=== PATIENT | male | born 1995 | race Two or more races ===

== ENCOUNTER 2018-04-25 01:27 | Inpatient (IN) | payer MEDICAID ==
--- NOTE | 2018-04-25 01:36 | EDPHY ---
H & P Time Seen by Provider: 04/25/18 01:32 HPI/ROS: CHIEF COMPLAINT: Bilateral ankle pain HISTORY OF PRESENT ILLNESS: Patient is a 22-year-old male brought here by EMS to complaint of bilateral ankle pain after falling this afternoon. The patient reports that he was in [place] climbing and was approximately 13 ft off the ground not using any ropes when a rock broke that he was holding onto any fell backwards directly onto both feet. He was able to take a couple steps after landing but has not been able to ambulate since. He was seen by [facility] and transported from site and then transported here by EMS. No medication was administered by EMS. He denies any drug or alcohol use. He denies any chronic medical conditions in takes no prescription medication. Denies numbness in his feet but does report loss of range of motion of bilateral ankles. Denies any low back pain, head injury, shortness of breath, abdominal pain, neck pain. REVIEW OF SYSTEMS: Constitutional: No fever, no chills. Eyes: No discharge. ENT: No sore throat. Cardiovascular: No chest pain, no palpitations. Respiratory: No cough, no shortness of breath. Gastrointestinal: No abdominal pain, no vomiting. Genitourinary: No hematuria. Musculoskeletal: No back pain. Skin: No rashes. Neurological: No headache. (Louis Castillo) Physical Exam: General Appearance: Alert and no distress. Eyes: Pupils equal and round no injection. Respiratory: Chest is nontender, lungs are clear to auscultation. Cardiac: regular rate and rhythm. Gastrointestinal: Abdomen is soft and nontender, no masses, bowel sounds normal. Musculoskeletal: Neck is supple and nontender, bilateral ecchymotic ankles without gross deformity. No tenderness to bilateral knees or mid tibia. Pedal pulses strong in bilateral feet. Neurovascular intact distal to the ankle bilaterally. Extremities have full range of motion and are nontender. Skin: No rashes or lesions. (Louis Castillo) Constitutional: Initial Vital Signs Temperature (C) 36 C 04/25/18 01:30 Heart Rate 93 04/25/18 01:30 Respiratory Rate 16 04/25/18 01:30 Blood Pressure 129/90 H 04/25/18 01:30 O2 Sat (%) 95 04/25/18 01:30 O2 Delivery Mode Room Air Allergies/Adverse Reactions: No Known Allergies Allergy (Unverified 04/25/18 01:34) Home Medications: Medication Instructions Recorded NK [No Known Home Meds] 04/25/18 Medical Decision Making ED Course/Re-evaluation: 22-year-old male here status post fall from 13 ft resulting in bilateral medial malleolus fractures. Patient is unable to walk and will be admitted for orthopedic evaluation. I discussed this with the trauma team who agrees to admit the patient is requesting orthopedic consult. Patient signed out to Dr. Pleitez at the end of my shift pending discussion with Orthopedics and splint placement and admission. (Louis Castillo) 0215: (Dominic Pleitez) Differential Diagnosis: Hip fracture, pelvic fracture, lumbar spine fracture, closed-head injury, neurovascular injury, compartment syndrome (Louis Castillo) - Data Points Medications Given: Dextrose/Sodium Chloride (D5w Ns) 1,000 mls @ 125 mls/hr IV CONT CELESTE Stop: 10/22/18 02:59 Last Admin: 04/25/18 08:22 Dose: 1,000 mls Morphine Sulfate (Morphine) 2 - 4 mg IVP Q1HR PRN PRN Reason: Pain, Severe Unable to Take PO Stop: 05/05/18 02:54 Last Admin: 04/25/18 08:09 Dose: 2 mg Oxycodone HCl (Oxycodone Ir) 5 - 10 mg PO Q4HRS PRN PRN Reason: Pain, Severe Able to Take PO Stop: 05/05/18 14:02 Last Admin: 04/25/18 22:13 Dose: 5 mg Discontinued Medications Bacitracin (Bacitracin Syringe) Confirm Administered Dose 50,000 units IRR .STK- MED ONE Stop: 04/25/18 09:16 Last Admin: 04/25/18 11:33 Dose: 50,000 units Bupivacaine HCl (Sensorcaine 0.25% Sdv) Confirm Administered Dose 30 ml .ROUTE .STK-MED ONE Stop: 04/25/18 09:15 Last Admin: 04/25/18 11:32 Dose: 30 ml Sodium Chloride (Ns) 1,000 mls @ 0 mls/hr IV EDNOW ONE; Wide Open PRN Reason: Protocol Stop: 04/25/18 01:49 Last Admin: 04/25/18 01:58 Dose: 1,000 mls Cefazolin Sodium/Dextrose (Ancef 2 Gm) 100 mls @ 200 mls/hr IV ONCALL ONE PRN Reason: Protocol Stop: 04/25/18 10:57 Last Admin: 04/25/18 10:53 Dose: 100 mls Cefazolin Sodium/Dextrose (Ancef 2 Gm) 100 mls @ 200 mls/hr IV Q8HRS CELESTE PRN Reason: Protocol Stop: 04/25/18 22:29 Last Admin: 04/25/18 21:58 Dose: 100 mls Ketorolac Tromethamine (Toradol) 15 mg IVP POSTOP ONE Stop: 04/25/18 12:01 Last Admin: 04/25/18 13:58 Dose: Not Given Midazolam HCl (Versed) 2 mg IVP ONCALL ONE Stop: 04/25/18 10:54 Last Admin: 04/25/18 10:53 Dose: 2 mg Morphine Sulfate (Morphine) 4 mg IVP EDNOW ONE Stop: 04/25/18 02:29 Last Admin: 04/25/18 02:29 Dose: 4 mg Ondansetron HCl (Zofran) 4 mg IVP EDNOW ONE Stop: 04/25/18 02:29 Last Admin: 04/25/18 02:29 Dose: 4 mg Polymyxin B Sulfate (Polymyxin B Syringe) Confirm Administered Dose 500,000 unit IRR .STK-MED ONE Stop: 04/25/18 09:16 Last Admin: 04/25/18 11:33 Dose: 500,000 unit Departure - Departure Disposition: [facility] Inpatient Acute Clinical Impression: Bilateral ankle fractures Qualifiers: Encounter type: initial encounter Fracture type: closed Qualified Code(s): S82.891A - Other fracture of right lower leg, initial encounter for closed fracture; S82.892A - Other fracture of left lower leg, initial encounter for closed fracture; S82.892A - Other fracture of left lower leg, initial encounter for closed fracture Condition: Fair
[2018-04-25] MEDS ORDERED: NS 1,000 ML IV ONE (01:48)
[2018-04-25] MEDS ORDERED: ONDANSETRON 4 MG/2 ML VIAL ONE ×2 (02:27→10:50)
[2018-04-25] MEDS ORDERED: ONDANSETRON 4 MG/2 ML VIAL IVP ONE (02:28)
[2018-04-25] MEDS ORDERED: ONDANSETRON 4 MG/2 ML VIAL IVP PRN ×2 (02:55→11:04)
[2018-04-25] MEDS ORDERED: D5W NS 1,000 ML IV SCH (03:00)
--- NOTE | 2018-04-25 03:06 | PDGENHP ---
History and Physical - Chief Complaint s/p fall while climbing - History of Present Illness Saman is a 22 y/o male who was rock climbing when he fall about 10 feet and landed on his feet. He experienced immediate bilateral ankle pain and sat down. His friend went to get help and Saman was able to drag himself using his arms to the trail. He was then transported out by stretcher the rest of the way. The fall occured around 1930. [facility] ED as a L[facility] where he was seen and evaluated on arrival. Plain films revealed bilateral medial malleolar fractures and Trauma Surgery consultation was requested. He denies head injury, LOC, back/chest/abd pain. His last meal was 04/24 at 1300. 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 He is physically active and enjoys weight lifting and playing soccer Review of Systems Review of Systems: Constitutional: Reports: no symptoms EENMT: Reports: no symptoms Cardiac: Reports: no symptoms Respiratory: Reports: no symptoms Gastrointestinal: Reports: no symptoms Genitourinary: Reports: no symptoms Muscolosketal: Reports: joint pain (bilateral ankle) Neurological: Reports: no symptoms Physical Exam Physical Exam: Temp Pulse Resp BP Pulse Ox 36 C 100 16 158/97 H 94 04/25/18 01:30 04/25/18 02:33 04/25/18 02:33 04/25/18 02:33 04/25/18 02:33 Constitutional: other (WDWN young man in mild distress ) Eyes: PERRL, EOMI, other (TMs clear) Ears, Nose, Mouth, Throat: dry mucous membranes Cardiovascular: regular rate and rhythym Peripheral Pulses: 4+: dorsalis-pedis (R) (unable to palpate PT due to swelling) , dorsalis-pedis (L) Respiratory: no respiratory distress, no rales or rhonchi, clear to auscultation Gastrointestinal: normoactive bowel sounds, soft, non-tender abdomen Genitourinary: no bladder fullness Skin: warm Musculoskeletal: full muscle strength, other (bilateral ankle swelling with medial bruising R>L, intact sensation and motor function/no cervical, thoracic, lumbar spine tenderness) Neurologic: AAOx3, sensation intact bilaterally Psychiatric: interacting appropriately, not anxious, not encephalopathic Lab Data & Imaging Review 04/25/18 02:30 Visualized and Interpreted imaging results: Yes Interpretation: bilateral medial malleolar fractures/AP + Lateral lumbar spine neg Assessment & Plan Assessment: s/p fall from 10 ft height bilateral medial malleolar fractures Plan: Admit to observation Tertiary Survey in AM Ortho consult requested from Dr. José Manuel Nunn If no other injury identified, transfer to Ortho for management of isolated Orthopedic injuries
[2018-04-25] MEDS ORDERED: BUPIVACAINE 0.25% 30 ML SDV ONE (09:14)
[2018-04-25] MEDS ORDERED: POLYMYXIN B SULFATE 500,000 UNIT/10 ML SYR IRR ONE (09:15)
[2018-04-25] MEDS ORDERED: BACITRACIN 50,000 UNITS/10 ML SYR IRR ONE (09:15)
[2018-04-25] MEDS ORDERED: ceFAZolin 2 GM/DEXTROSE 100 ML IV ONE (10:28)
[2018-04-25] MEDS ORDERED: MIDAZOLAM 2 MG/2 ML VIAL ONE (10:47)
[2018-04-25] MEDS ORDERED: DEXAMETHASONE 4 MG/ML VIAL ONE ×2 (10:50)
[2018-04-25] MEDS ORDERED: PROPOFOL 200 MG/20 ML VIAL ONE (10:50)
[2018-04-25] MEDS ORDERED: fentaNYL 100 MCG/2 ML INJ ONE (10:50)
[2018-04-25] MEDS ORDERED: LIDOCAINE 2% JELLY 5 ML TUBE ONE (10:50)
[2018-04-25] MEDS ORDERED: MIDAZOLAM 2 MG/2 ML VIAL IVP ONE (10:53)
--- NOTE | 2018-04-25 10:56 | PDANEPAE ---
ANE Past Medical History - Pulmonary History Hx Oxygen in Use at Home: No Hx Sleep Apnea: No Sleep Apnea Screening Result - Last Documented: Negative - Endocrine History Hx Diabetes: No - Chronic Pain History Chronic Pain: Yes ANE Review of Systems Review of Systems: ANE Patient History - Allergies Allergies/Adverse Reactions: No Known Allergies Allergy (Unverified 04/25/18 01:34) - Home Medications Home Medications: NK [No Known Home Meds] 04/25/18 [Last Taken Unknown] - NPO status NPO Since - Liquids (Date): 04/25/18 NPO Since - Liquids (Time): 00:00 NPO Since - Solids (Date): 04/25/18 NPO Since - Solids (Time): 00:00 - Smoking Hx Smoking Status: Never smoked - Alcohol Use Alcohol Use: None - Family Anes Hx Family Anes Hx: neg - N/A ANE Labs/Vital Signs - Labs Result Diagrams: 04/25/18 02:30 - Vital Signs Blood Pressure: 106/66 Heart Rate: 74 Respiratory Rate: 16 O2 Sat (%): 96 Height: 170.18 cm Weight: 72.575 kg ANE Physical Exam - Airway Neck exam: FROM Mouth exam: normal dental/mouth exam - Pulmonary Pulmonary: no respiratory distress, no rales or rhonchi, clear to auscultation - Cardiovascular Cardiovascular: regular rate and rhythym, no murmur, rub, or gallop - ASA Status ASA Status: I ANE Anesthesia Plan Anesthesia Plan: GA w LMA
[2018-04-25] MEDS ORDERED: HYDROCODONE/APAP 5/325 TAB PO PRN (11:04)
[2018-04-25] MEDS ORDERED: fentaNYL 100 MCG/2 ML INJ IVP PRN (11:04)
[2018-04-25] MEDS ORDERED: MEPERIDINE 25 MG/0.5 ML AMP IVP PRN (11:04)
[2018-04-25] MEDS ORDERED: NALOXONE HCL 0.4 MG/ML INJ IVP PRN (11:04)
[2018-04-25] MEDS ORDERED: PROMETHAZINE HCL 25 MG/ML INJ IVP PRN (11:04)
[2018-04-25] MEDS ORDERED: LR 500 ML IV PRN (11:04)
[2018-04-25] MEDS ORDERED: METOCLOPRAMIDE 10 MG/2 ML VIAL IVP PRN (11:04)
[2018-04-25] MEDS ORDERED: oxyCODONE IR 5 MG TAB PO PRN (11:04)
[2018-04-25] MEDS ORDERED: ACETAMINOPHEN 500 MG TAB PO PRN (11:04)
[2018-04-25] MEDS ORDERED: LIDOCAINE 2% 5 ML SDV ONE (11:14)
[2018-04-25] MEDS ORDERED: ESMOLOL HCL 100 MG/10 ML VIAL IV ONE (11:14)
--- NOTE | 2018-04-25 11:58 | POSTOPPROG ---
Post Op Note Date of Operation: 04/25/18 Surgeon: José Manuel Nunn Ton Cylinder Inspector: None Anesthesiologist: Deb Anesthesia: LMA Pre-op Diagnosis: Right ankle medial maleolus fracture Post-op Diagnosis: Same\ Indication: Broken ankle Procedure: ORIF medial maleolus Findings: Synthes 4.0 Tip threaded cancellous screws x 2 Inf/Abcess present in the surg proc area at time of surgery?: No EBL: Minimal Complications: None
--- NOTE | 2018-04-25 11:59 | POSTANESTH ---
Post Anesthetic Evaluation Cardiovascular Status: Normal, Stable, Similar to Pre-Op Cond Respiratory Status: Normal, Stable, Similar to Pre-op Cond. Level of Consciousness/Mental Status: Can Participate in Eval, Moderately Sleepy Pain Control: Adequate, Prn Tx Ordered Nausea/Vomiting Control: Adequate, Prn Tx Ordered Complications Possibly Related to Anesthesia: None Noted
[2018-04-25] MEDS ORDERED: KETOROLAC 15 MG/1 ML SDV IVP ONE (12:00)
[2018-04-25] MEDS ORDERED: TEMAZEPAM 15 MG CAP PO PRN (12:00)
--- NOTE | 2018-04-25 12:10 | SOAPPROG ---
SOAP Progress Note Assessment/Plan: Assessment/Plan: R ankle medial malleolus fracture, displaced s/p ORIF of medial malleolus performed by Dr. Nunn, POD#0 -Cont PT/OT, pt will be NWB of his RLE -Pt is to remain in his splint at all times -Cont current pain regimen, encourage PO as tolerated -Encourage ice/elevation while in bed -Cont postop abx as ordered -SCDs and TEDs contraindicated d/t fracture/immobilizer status -Will begin ASA 325 mg for VTE chemoprophylaxis -Pt will likely d/c to home when cleared, likely tomorrow L ankle medial malleolus fracture -Cont PT/OT, pt will be WBAT on LLE -Must remain in boot -Cont current pain regimen, encourage PO as tolerated -Encourage ice/elevation while in bed -SCDs and TEDs contraindicated d/t fracture/immobilizer status -Will begin ASA 325 mg for VTE chemoprophylaxis -Pt will likely d/c to home when cleared, likely tomorrow 04/25/18 12:07 Subjective: Pt transported to PACU in stable condition Objective: Vital Signs Temp Pulse Resp BP Pulse Ox 37.0 C 74 16 106/66 96 04/25/18 10:05 04/25/18 10:57 04/25/18 10:57 04/25/18 10:57 04/25/18 10:57 Laboratory Results 04/25/18 02:30 ICD10 Worksheet Patient Problems: Problems Problem Status Onset Closed displaced fracture of medial malleolus of right tibia Acute - ICD10 Problem Qualifiers (1) Closed displaced fracture of medial malleolus of right tibia Qualifiers: Encounter type: initial encounter Qualified Code(s): S82.51XA - Displaced fracture of medial malleolus of right tibia, initial encounter for closed fracture
--- NOTE | 2018-04-25 12:33 | GOP ---
[f rep st] OPERATIVE REPORT DATE OF OPERATION: 04/25/2018 SURGEON: José Manuel Nunn MD PREOPERATIVE DIAGNOSIS: Bilateral medial malleolar ankle fractures. POSTOPERATIVE DIAGNOSIS: Bilateral medial malleolar ankle fractures. PROCEDURE PERFORMED: 1. Open treatment of right medial malleolus fracture. 2. Closed treatment of left medial malleolus fracture. FINDINGS: Synthes 4.0 mm tip threaded cancellous screws x2 were utilized for internal fixation of hi s medial malleolar fracture. INDICATIONS: The patient is a 22-year-old who was rock climbing late last night when he apparently f ell approximately 10 feet, injuring his bilateral ankles. He was evacuated and brought into the [facility] Emergency Department where his ankle fractures were identified. Due to the displaced paolo ure of his right medial malleolar fracture, he is brought to the operating room for definitive surgic al management. Additionally, he undergoes examination under anesthesia of the left ankle and subsequ ent boot immobilization. DESCRIPTION OF PROCEDURE: After routinely checking the patient's identification, consent, and the hoover ccessful induction of LMA general anesthetic, the patient's right lower extremity was prepped and corinne ped in usual standard fashion. A surgical time-out was completed. A curvilinear incision on the medial aspect of the ankle was carried sharply through skin and then bl untly through the subcutaneous layer. I dissected down through the subcutaneous layer and there was extensive disruption of the soft tissues. His medial malleolus was rotated 180 degrees out of plane. I opened the fracture site and evacuated fracture hematoma. I then sharply dissected subperiosteal fragments such that I had a good exposure of the actual fracture plane itself. I extracted soft tis kassie from the fracture that was mostly periosteum that had draped over the fracture. I then rotated t he fragment appropriately and repositioned it. I held it in position with a pointed bone tenaculum. I then pre drilled and then placed the above-noted screws, which achieved excellent purchase in this patient's bone and tightly closed the fracture. The FluoroScan unit was used to verify the fracture was reduced and the hardware was appropriately positioned. The wound was thoroughly irrigated. I t hen closed the periosteum with 3-0 Vicryl suture over the fracture site. I brought the shredded post erior retinaculum from the F[facility] and posterior tib tendon with tendons back together and sutured the re tinaculum to the periosteum. The ankle was flexed and extended. There was no evidence of subluxatio n of the medial tendons. Satisfied with this, I closed the subcutaneous layer with a combination of 2-0 and 3-0 Vicryl, and th e skin with subcuticular 4-0 Monocryl, followed by Steri-Strips. 0.25% Marcaine, plus epinephrine wa s infiltrated around the wound for postoperative comfort and assistance in hemostasis. A sterile bul ky dressing was applied, followed by a posterior plaster splint with side stirrups and compressive wr ap. The pneumatic tourniquet was deflated without adverse consequence. The patient tolerated the pr ocedure well. At the conclusion of the case. I performed an examination under anesthesia of the left ankle. There was no gross instability noted. Anterior drawer testing was normal and subtalar tilt testing also f ound minor instability on the medial side, but none on the lateral side. As such, I elected to treat this in a closed fashion with weightbearing and a protected walking boot. The boot was placed on [facility] ankle in the operating room prior to him fully waking up. He tolerated the surgical procedures wel l. There were no complications. /[id number]/MODL
--- NOTE | 2018-04-25 13:14 | GCON ---
[f rep st] CONSULTATION CHIEF COMPLAINT: Bilateral ankle pain. HISTORY OF PRESENT ILLNESS: The patient is a pleasant 22-year-old male, who initially presented to the [facility] ED as a limited trauma activation earlier this morning after an injury sustained while rock climbing. The patient initially stated that he was rock climbing and fell around 10 feet, landing on his feet. He experienced immediate bilateral ankle pain and was unable to bear weight. His friend went to get help, and the patient was able to drag himself using his arms to a nearby trail. He was then transferred out by stretcher. The patient states that the fall occurred at approximately 1930 hours. Again, he was brought to the [facility] ED as an LPA where he was seen and evaluated by Dr. Dominic Glass on arrival. Subsequent radiographs revealed bilateral medial malleolar fractures. The patient initially denied any head injury or loss of consciousness, as well as any additional orthopedic pain, including back pain, chest, or abdominal pain. Today, the patient states that his pain is well controlled on his current medications. He denies any new onset numbness and tingling, and states that he has been compliant with his nonweightbearing status. He states that he has remained in his posterior and stirrup splints applied in the ED at all times. He notes no significant past injury history to the bilateral ankles. He is accompanied by his parents in the room at this time. They have no additional concerns or complaints at this time. PAST MEDICAL HISTORY: None. The patient denies any significant past medical history. PAST SURGICAL HISTORY: None. The patient denies any significant past surgical history. CURRENT MEDICATIONS: None. The patient denies any current medication or supplement use. ALLERGIES: The patient states no known drug allergies. The patient also denies any allergies to metals. SOCIAL HISTORY: The patient states no current or former tobacco use. The patient states no current alcohol consumption. The patient states no recreational drug use. 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 He is physically active, and enjoys weightlifting and playing soccer in his free time. He lives at home with his parents. REVIEW OF SYSTEMS: A 10-point review of systems is reviewed today with no additional concerns, complaints, or abnormal findings not noted in the HPI or PMH. PHYSICAL EXAMINATION: VITAL SIGNS: Height is 170.18 cm. Weight is 72.57 kg. Blood pressure is 106/66, HR 74 beats per minute, RR 16/min, and O2 saturation 96% on room air. GENERAL: A healthy-appearing male in NAD. Pleasant and cooperative with today' s exam. HEENT: EOMI. PERRLA. Ears and nares are patent and without discharge. OP is clear. NECK: Supple, NTTP, full ROM. CARDIOVASCULAR: RRR. No M/C/G/R. RESPIRATORY: CTAB. No increased WOB noted. ABDOMEN: Soft, NT/ND. No HSM noted. MUSCULOSKELETAL: Examination of the bilateral ankles reveals intact Ortho Glass posterior and stirrup splints, with appropriate padding. Toes are exposed. No surrounding erythema, discharge, or induration is noted. Mild to moderate swelling is noted with limited removal of the splints. The patient is tender to palpation over the medial malleoli bilaterally. Posterior tibialis and dorsalis pedis pulses are intact and equal compared bilaterally. Capillary refill is less than 2 seconds in the finger pulp. ROM assessment is not completed at this time due to fracture status. The patient is intact to light touch sensation distally. DNVI BLE. NEUROLOGIC: A and O x3. Appropriate mood and affect. Speech is noted to be fluid and fluent. PSYCHIATRIC: Pleasant and cooperative with exam, not anxious. RADIOGRAPHS: Three views of the right ankle are reviewed today revealing a rotated and displaced medial malleolar fracture. No additional fracture or dislocations noted. Mortise is intact. Three views of the left ankle are reviewed today showing a mildly displaced fracture of the medial malleolus. No additional fracture or dislocation is noted. Ankle mortise is well intact. ASSESSMENT: Right and left medial malleoli fractures, displaced. PLAN: This patient's case and radiographs were discussed with Dr. Nunn today, who also saw and examined the patient today. At this time, the patient's left ankle medial malleolar fracture appears mildly displaced and is, in Dr. Nunn's opinion, best treated conservatively with immobilization. He will be placed in a CAM walker boot and made weightbearing as tolerated. He is to avoid significant impact activities, and he is encouraged to ambulate with the use of assistive devices. After a discussion of the treatment options regarding the right ankle, Dr. Nunn has recommended that, due to the displacement and rotation of the fracture fragment, the patient would be best treated with an open reduction internal fixation procedure. After a discussion of risks and benefits of the surgical procedure, the patient has decided to proceed with the aforementioned procedure , and a signed informed consent was obtained. The patient will be placed on Ancef for IV antibiotic prophylaxis, which he will continue postoperatively. The patient will remain nonweightbearing to the right lower extremity and will remain in his postoperative splint at all times. SCDs and MARLO hose are contraindicated in this patient due to his immobilization and fracture status. The patient will be placed on aspirin 325 mg daily for VTE chemoprophylaxis, which he will continue for 3 weeks postoperatively. All the patient's questions have been answered today and his concerns addressed. He has relayed his understanding of the current care plan and education presented today, and appears pleased with the care he has received today. Anticipate discharge hopefully tomorrow, with good progression with physical and occupational therapy, as well as successful p.o. pain control. We will continue to follow this patient while in-house. Please call with any questions or concerns at [phone]. /[id number]/MODL MTDD
--- NOTE | 2018-04-25 14:01 | ASMTCMCOM ---
CM Note CM Note Notes: 22yr old male fell while rock climbing-bilat ankle fx's. 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 Parents and patient live in [place]. He plans to stay with them on discharge. [facility] Medicaid will be in Thursday to see if he might qualify. Date Signed: 04/25/2018 02:00 PM Electronically Signed By:Denise Olivo LCSW
[2018-04-25] MEDS ORDERED: ACETAMINOPHEN 325 MG TAB PO PRN (14:04)
[2018-04-25] MEDS ORDERED: HYDROmorphONE/DILAUDID 2 MG TAB PO PRN (14:14)
[2018-04-25] MEDS: ceFAZolin 2 GM/DEXTROSE 100 ML IV SCH ×2 (14:23→21:58)
[2018-04-25] MEDS: oxyCODONE IR 5 MG TAB PO PRN ×2 (14:30→22:13)
--- NOTE | 2018-04-25 19:56 | TRAUMAPN ---
Trauma Progress Note Assessment/Plan: 22yo M s/p fall c bilateral medial malleolar fx - TERTIARY EXAM - Neuro: intact, TORRES, distal feet neuro intact. Pain is controlled - Pulm: GABE - CV: HDS - Abd: soft, ND, NT, reg diet after surgery - Renal: voiding - Ortho: [facility] med mal fx, to OR - Dispo: per orthopedics, as patient has isolated orthopedic injuries, will sign off from trauma standpoint Subjective: no pain Objective: Vital Signs Temp Pulse Resp BP Pulse Ox 36.9 C 79 16 125/70 H 95 04/25/18 19:23 04/25/18 19:23 04/25/18 19:23 04/25/18 19:23 04/25/18 19:23 Laboratory Results 04/25/18 02:30 04/24/18 04/25/18 04/26/18 05:59 05:59 05:59 Intake Total 1200 Output Total 1400 Balance -200
--- NOTE | 2018-04-26 06:42 | SOAPPROG ---
SOAP Progress Note Assessment/Plan: Assessment/Plan: R ankle medial malleolus fracture, displaced s/p ORIF of medial malleolus performed by Dr. Nunn, POD#1 -Cont PT/OT, pt will be NWB of his RLE -Pt is to remain in his splint at all times -Cont current pain regimen, encourage PO as tolerated -Encourage ice/elevation while in bed -Cont postop abx as ordered -SCDs and TEDs contraindicated d/t fracture/immobilizer status -Will begin ASA 325 mg for VTE chemoprophylaxis -Pt will likely d/c to home when cleared, likely tomorrow L ankle medial malleolus fracture -Cont PT/OT, pt will be WBAT on LLE -Must remain in boot -Cont current pain regimen, encourage PO as tolerated -Encourage ice/elevation while in bed -SCDs and TEDs contraindicated d/t fracture/immobilizer status -Will begin ASA 325 mg for VTE chemoprophylaxis -Pt will likely d/c to home when cleared, likely tomorrow 04/26/18 11:59 Subjective: Pt seen up in chair. No complaints of significant pain at rest, but does note discomfort with mobilization. He has remained in his boot and splint as instructed. He denies f/c/n/v, harris, cp, sob, abd pain, new onset n/t, or posterior calf pain. He tolerating diet and medications well. We discussed d/ c criteria. No additional concerns or complaints at this time. Objective: Vital Signs Temp Pulse Resp BP Pulse Ox 36.8 C 79 16 118/65 96 04/26/18 04:00 04/26/18 04:00 04/26/18 04:00 04/26/18 04:00 04/26/18 04:00 Laboratory Results 04/25/18 02:30 04/25/18 04/26/18 04/27/18 05:59 05:59 05:59 Intake Total 1200 Output Total 2000 Balance -800 Pt seen up in chair. A&Ox3, appropriate mood and affect, pleasant and cooperative. NAD, non-toxic, afebrile. VSS. Exam of LLE reveals intact CAM walker boot. DNVI with application. TTP over medial malleolus. Otherwise NTTP. Posterior tibialis and dorsalis pedis pulses intact and equal compared bilaterally. Exam of RLE reveals intact postop splint. Pt moves toes well. No surrounding erythema, calor, discharge or induration. Post calves NTTP, no palpable vascular cords, neg Marciano's bilat. DNVI BLE. ICD10 Worksheet Patient Problems: Problems Problem Status Onset Bilateral ankle fractures Acute Closed displaced fracture of medial malleolus of right tibia Acute - ICD10 Problem Qualifiers (1) Closed displaced fracture of medial malleolus of right tibia Qualifiers: Encounter type: initial encounter Qualified Code(s): S82.51XA - Displaced fracture of medial malleolus of right tibia, initial encounter for closed fracture
[2018-04-26] MEDS: ASPIRIN EC 325 MG TAB PO SCH (07:43)
[2018-04-26] MEDS: oxyCODONE IR 5 MG TAB PO PRN (07:43)
[2018-04-26] MEDS: METHOCARBAMOL 750 MG TAB PO PRN (07:43)
[2018-04-26] MEDS: HYDROCODONE/APAP 5/325 TAB PO PRN (10:56)
--- NOTE | 2018-04-26 14:56 | ASMTCMCOM ---
CM Note CM Note Notes: Pt qualifies for financial assistance - he does not qualify for Medicaid. Anticipate d/c with no CM needs after his friend obtains DME and he is medically cleared. CM will continue to follow. Date Signed: 04/26/2018 02:55 PM Electronically Signed By:АНДРЕЙ Butler
--- NOTE | 2018-04-26 18:27 | TRAUMAPN ---
Trauma Progress Note Assessment/Plan: 22 y/o M s/p 10ft fall rock climbing with bilateral medial malleolus fractures Now s/p ORIF of R medial malleolus S: No complaints. Denies pain. Has been compliant with activity restrictions. Working with PT/OT. Tolerating regular diet. O: Alert Afebrile RRR No increased WOB RLE: splint intact, sensation in toes intact LLE: Foot in boot, sensation in toes intact Plan: Dispo home tomorrow. Continue to wear splint and boot. ASA 325 for VTE prophylaxis. Trauma service will sign off at this time. Objective: Vital Signs Temp Pulse Resp BP Pulse Ox 36.9 C 69 15 128/87 H 95 04/26/18 15:28 04/26/18 15:28 04/26/18 15:28 04/26/18 15:28 04/26/18 15:28 Laboratory Results 04/25/18 02:30 04/25/18 04/26/18 04/27/18 05:59 05:59 05:59 Intake Total 1200 500 Output Total 2000 400 Balance -800 100
--- NOTE | 2018-04-26 20:06 | SOAPPROG ---
SOAP Progress Note Assessment/Plan: Assessment: SEEN WITH RENATE HUSSEIN. REFER TO HER NOTE NO NEW INJURIES Plan:HOME IN AM 04/26/18 20:05 Objective: Vital Signs Temp Pulse Resp BP Pulse Ox 36.9 C 69 15 128/87 H 95 04/26/18 15:28 04/26/18 15:28 04/26/18 15:28 04/26/18 15:28 04/26/18 15:28 Laboratory Results 04/25/18 02:30 04/25/18 04/26/18 04/27/18 05:59 05:59 05:59 Intake Total 1200 500 Output Total 2000 400 Balance -800 100 ICD10 Worksheet Patient Problems: Problems Problem Status Onset Bilateral ankle fractures Acute Closed displaced fracture of medial malleolus of right tibia Acute
[2018-04-27] MEDS: METHOCARBAMOL 750 MG TAB PO PRN (06:40)
[2018-04-27] MEDS: HYDROCODONE/APAP 5/325 TAB PO PRN (06:40)
[2018-04-27 07:37] VITALS: BP 131/92
--- NOTE | 2018-04-27 08:28 | SOAPPROG ---
SODE[facility] Progress Note Assessment/Plan: Assessment:Doing fine. Plan: Likely D\C today NWB Right ankle, WBAT Left LE in boot 04/27/18 08:27 Subjective: Slept OK Minimal pain. Objective: Vital Signs Temp Pulse Resp BP Pulse Ox 36.7 C 91 16 131/92 H 93 04/27/18 07:35 04/27/18 07:35 04/27/18 07:35 04/27/18 07:35 04/27/18 07:35 Laboratory Results 04/25/18 02:30 04/26/18 04/27/18 04/28/18 05:59 05:59 05:59 Intake Total 1200 500 Output Total 2000 400 500 Balance -800 100 -500 AF VSS CSM intact toes B LE Calves NT - limited exam due to cast/boot Dressing CDI - Pending Discharge Pending Discharge Within 24 Hours: Yes Pending Discharge Date: 04/28/18 Pending Discharge Time: 14:00 ICD10 Worksheet Patient Problems: Problems Problem Status Onset Bilateral ankle fractures Acute Closed displaced fracture of medial malleolus of right tibia Acute
[2018-04-27] MEDS: ASPIRIN EC 325 MG TAB PO SCH (08:56)
[2018-04-27] MEDS ORDERED: OXYCODONE/APAP 5/325 TAB PO PRN (14:08)
--- NOTE | 2018-04-27 15:33 | PDMN ---
Medical Necessity Medical necessity: Pt meets INPT criteria per MD as of 04/26/18; LOS >2 MN for eval/tx s/p bilateral ankle fractures, ORIF requiring ongoing PT/OT, abx.
--- NOTE | 2018-04-27 15:46 | ASMTCMCOM ---
CM Note CM Note Notes: Pt medically stable for d/c, no CM d/c needs identified. FC is working w pt Date Signed: 04/27/2018 03:45 PM Electronically Signed By:АНДРЕЙ Magallanes
--- NOTE | 2018-04-29 10:57 | GDS ---
[f rep st] DISCHARGE SUMMARY PREOPERATIVE DIAGNOSES: Bilateral medial malleoli fractures. POSTOPERATIVE DIAGNOSES: Bilateral medial malleoli fractures. PROCEDURE PERFORMED: 1. Open treatment of right medial malleolus fracture. 2. Closed treatment of left medial malleolus fracture. HISTORY OF PRESENT ILLNESS: The patient is a pleasant, 22-year-old male, who initially presented to the [facility] ED after a fall of approximately 10 feet while rock climbing on 04/24/2018. He was a limited trauma activation, originally admitted to the trauma service, under Dr. Dominic Glass. Subsequent radiographs showed bilateral medial malleoli fractures, right worse than left. After a discussion of treatment options, the patient has elected to undergo a surgical fixation of the right medial malleolar fracture, as well as continued conservative treatment with immobilization for the left medial malleolar fracture as directed by Dr. José Manuel Nunn. HOSPITAL COURSE: As above, the patient was admitted, placed on IV Ancef for antibiotic measure, and taken to the operating room on 04/25/2018 whereupon he underwent an open reduction internal fixation of the right medial malleolar fracture performed by Dr. José Manuel Nunn. There were no intraoperative complications. Postoperative treatment for VTE prophylaxis includes chemoprophylaxis with aspirin 325 mg. Mechanical prophylaxis was contraindicated due to fracture and immobilization status. The patient was consulted on by Physical and Occupational Therapy. His surgical incisions appear to be healing well at the time of discharge, and his hospital stay was otherwise uneventful. Although initially admitted to observation, the patient had a significant difficulty with immobilization given his bilateral lower extremity fracture status and required additional physical therapy, postoperative antibiotic prophylaxis, as well as continued postoperative pain management, which required that the patient be switched to inpatient status. His hospital stay was otherwise uneventful. DISCHARGE INSTRUCTIONS: 1. The patient is to remain nonweightbearing of his right lower extremity at all times and to remain in his postoperative splint at all times. He is to keep the splint as well as the surgical incision site, clean and dry at all times, and to cover for showering purposes. 2. Patient is to remain weightbearing as tolerated on his left lower extremity and to remain in his CAM walker boot at all times with the use of assistive devices such as crutches or walker for ambulation as recommended by Physical Therapy. 3. The patient is to watch for signs of infection at his surgical incision site including, but not limited to: Increased redness/swelling, significant increases in pain, warmth or streaking, as well as to watch for constitutional symptoms such as fevers, chills, nausea, vomiting. He is encouraged to contact the office immediately should any of these occur. 4. The patient is to use ice and elevation as much as possible when resting for relief of mild swelling and pain. 5. The patient is to take 325 mg of aspirin once daily with a meal for 21 days postoperatively for VTE chemoprophylaxis. 6. The patient is to use his prescription pain medication as directed. 7. The patient is to avoid smoking and any additional significant NSAID use as these can delay bone healing. 8. The patient is to follow up with Dr. Nunn 10-14 days postoperatively for repeat evaluation, x-rays and potential cast management, or sooner with any additional concerns or complaints. He is encouraged to contact the office as soon as possible to schedule this appointment. 9. The patient is encouraged to contact the office at any time with questions or concerns at [phone]. MEDICATIONS UPON DISCHARGE: 1. Aspirin EC 325 mg p.o. daily x21 days postoperatively. 2. Robaxin 750 mg p.o. t.i.d. p.r.n. #30. 3. Percocet 5/325 mg p.o. 1-2 tabs q.4-6 hours p.r.n. #30. 4. The patient is also advised to resume any additional home medications or supplements. FOLLOW UP: The patient is to follow up with Dr. Nunn 10-14 days postoperatively , or sooner with any additional concerns or complaints. He is encouraged to contact the office as soon as possible to schedule this appointment. /[id number]/MODL MTDD
== END 2018-04-27 15:12 | disposition home or self-care (01) | DRG 494 ==
LOC: F3N 03:15 → OBSVTOIN 04-26 15:15
PROVIDERS: ADMIT Surgery; ATTEND Surgery
PROC: 0QSG04Z Reposition Right Tibia with Internal Fixation Device, Open Approach (ICD-10-PCS; principal; 2018-04-25 10:30)
DX: S82.51XA Displaced fracture of medial malleolus of right tibia, initial encounter for closed fracture (principal); S82.52XA Displaced fracture of medial malleolus of left tibia, initial encounter for closed fracture; E86.9 Volume depletion, unspecified; W17.89XA Other fall from one level to another, initial encounter; Y93.31 Activity, mountain climbing, rock climbing and wall climbing; Y92.838 Other recreation area as the place of occurrence of the external cause; Y99.9 Unspecified external cause status
CPT/HCPCS: 96374; 97161-GP; 97165-GO; 97530-GP; 97535-GO; C1713; G0378; J0690; J1100; J2250; J2270; J2405; J2704; J3010